=== PATIENT | female | born 1980 | race Caucasian/White ===

== ENCOUNTER 2017-04-01 16:15 | Emergency (ER) | payer OTHER ==
[~2017-04-01] VITALS: Ht 175.3 cm; Wt 59.6 kg
[~2017-04-01 16:15] MED LIST: MEDROL DOSEPAK4 MG PO; PERCOCET 5/31 TABLET PO; VALIUM2 MG PO
[2017-04-01 18:07] LABS: MCH 31.9 PG (29.0-34.0); MCHC 33.4 G/DL (30.0-36.0); MCV 95.5 FL (83-99); MEAN PLAT.VOLUME 11.7 uM^3 (9.5-12.4); PLATELET COUNT 245 K/uL (156-360); RBC DIS.WIDTH-CV 12.8 % (11.8-14.6); RBC DIS.WIDTH-SD 45.1 % (39-53); RED BLOOD COUNT 3.98 M/uL (3.80-5.20); WHITE BLOOD COUNT 8.4 K/uL (4.1-10.2)
[2017-04-01 18:19] LABS: CHLORIDE 107 mEq/L (99-109); POTASSIUM 4.9 mEq/L (3.7-5.4); SODIUM 139 mEq/L (136-147)
[2017-04-01 18:21] LABS: GLUCOSE 105 mg/dL (70-99)
[2017-04-01 18:22] LABS: ANION GAP 7 MEQ/L (2-14)
[2017-04-01 18:23] LABS: TOTAL BILIRUBIN 0.7 mg/dL (0.0-1.0)
[2017-04-01 18:24] LABS: ALKALINE PHOSPHATASE 65 IU/L (3-129)
[2017-04-01 18:25] LABS: GFR ESTIMATE (CALCULATED) > 59 mL/min/
[2017-04-01 18:26] LABS: UREA NITROGEN (BUN) 9 mg/dL (9-23)
[2017-04-01 18:36] LABS: QUANTITATIVE HCG < 4.0 MIU/ML
[2017-04-01 19:37] LABS: ADD MIUA? YES; BILIRUBIN NEGATIVE; BLOOD NEGATIVE; COLOR YELLOW ((YELLOW)); GLUCOSE (STRIP) NEGATIVE; KETONES 5; LEUKOCYTES TRACE; NITRITE NEGATIVE; PROTEIN (STRIP) NEGATIVE; SPECIFIC GRAVITY 1.011 (1.000-1.030); UROBILINOGEN 0.2 MG/DL (0.2-1.0)
[2017-04-01 19:51] LABS: BACTERIA 1+ /HPF; CASTS NONE SEEN /LPF; CRYSTALS NONE SEEN; EPITHELIAL CELLS 2+ /HPF; MUCUS NONE SEEN /LPF; RED BLOOD CELLS 0-5 /HPF (0-5); UCUL ADDED? NO; WHITE BLOOD CELLS 0-5 /HPF (0-5)
[2017-04-01] MEDS ORDERED: ZOFRAN ODT4 MG PO (20:15)
[2017-04-01] MEDS ORDERED: NAPROXEN500 MG PO (20:15)
[2017-04-01 20:59] VITALS: BP 112/65
== END 2017-04-01 20:59 | disposition home or self-care (01) ==
LOC: EME 16:15
DX: K80.20 Calculus of gallbladder without cholecystitis without obstruction (principal); R19.7 Diarrhea, unspecified; K76.0 Fatty (change of) liver, not elsewhere classified; F17.200 Nicotine dependence, unspecified, uncomplicated
CPT/HCPCS: 74177; 80053; 81003; 83690; 84702; 85027; 87086; 99281; 99285; J1885; J2405; J7030